=== PATIENT | male | born 1995 | race Caucasian/White ===

== ENCOUNTER → 2017-07-05 20:00 | Outpatient (CLI) | payer BC, SELFPAY | PROVIDERS: Family Provider Family Medicine; PCP Family Medicine; Visit Provider Internal Medicine Critical Care Medicine | DX: G47.10 Hypersomnia, unspecified (principal) | CPT/HCPCS: 95810; 95811 ==

== ENCOUNTER 2021-08-06 12:23 | Outpatient (CLI) | payer BC, SELFPAY ==
[2021-08-06 15:42] LABS: Hematocrit 45.2 % (40-54); Hemoglobin 16.1 g/dL (13.0-16.5); Mean Corp Hgb Conc 35.6 g/dL (32-36); Mean Corpuscular Hgb 33.8 pg (27.0-32.0); Mean Corpuscular Volume 94.8 fL (80-94); Mean Platelet Vol. 10.5 fl (6.2-12.0); Platelet Count 219 K/mm3 (150-450); RBC Distribution Width CV 12.1 % (11.6-14.6); RBC Distribution Width SD 42.2 fl (35.1-43.9); Red Blood Count 4.77 M/mm3 (4.6-6.2); White Blood Count 4.6 K/mm3 (4.4-11.0)
[2021-08-06 15:46] LABS: Erythrocyte Sedimentation Rate 1 mm/hr (0-20)
[2021-08-06 16:13] LABS: ALB/GLOB Ratio 1.5 RATIO (0.9-2.4); AST(SGOT) 24 U/L (15-37); Alanine Aminotransfer ALT/SGPT 63 U/L (16-61); Albumin, Serum 4.1 g/dL (3.2-5.0); Alkaline Phosphatase 90 U/L (45-117); Anion Gap 7 (5-15); BUN 12 mg/dL (7-18); BUN/Creat Ratio 14.9 RATIO (10-20); Calcium,Total 9.3 mg/dL (8.5-10.1); Chloride 105 mmol/L (98-107); EST Glomerular Filtration Rate 126 mL/min (>60); Est Glom Filt Rate - Afr Amer 152 mL/min (>60); Globulin 2.7 g/dL (2.2-4.2); Glucose 83 mg/dL (74-106); Potassium 4.1 mmol/L (3.5-5.1); Protein, Total 6.8 g/dL (6.4-8.2); Sodium Level 138 mmol/L (136-145)
== END 2021-08-06 23:59 | disposition home or self-care (01) ==
LOC: MFPLAB 12:24
PROVIDERS: PCP Family Medicine; Referring Provider Family Medicine; Visit Provider Nurse Practitioner Family
DX: M79.10 Myalgia, unspecified site (principal)
CPT/HCPCS: 36415; 80053; 85027; 85652

== ENCOUNTER 2021-08-14 14:10 | Outpatient (CLI) | payer BC, SELFPAY ==
[2021-08-14 18:10] LABS: D-Dimer Quantitative (DVT/PE) < 0.27 FEU/ug/m (0.27-0.49)
[2021-08-14 18:17] LABS: Magnesium 2.3 mg/dL (1.6-2.6)
[2021-08-17 12:07] LABS: Dilute Prothrombin Time (dPT) 36.1 sec (0.0-47.6); Dilute Russell Viper Venom 33.5 sec (0.0-47.0); PTT-LA 36.8 sec (0.0-51.9); Thrombin Time 18.3 sec (0.0-23.0); dPT Confirm Ratio 1.03 Ratio (0.00-1.34)
[2021-08-17 12:38] LABS: Interpretation Comment: (.)
== END 2021-08-14 23:59 | disposition home or self-care (01) ==
LOC: MFPLAB 14:11
PROVIDERS: Nurse Practitioner Family; PCP Family Medicine; Referring Provider Family Medicine; Visit Provider Nurse Practitioner Family
DX: M79.10 Myalgia, unspecified site (principal)
CPT/HCPCS: 36415; 83735; 85379

== ENCOUNTER → 2022-08-25 | Outpatient (CLI) | payer BC, SELFPAY ==
--- NOTE | 2022-08-25 18:37 | US_ITS ---
INDICATION: MASS-RT SUPERIOR EXAMINATION: Ultrasound US Scrotum (Contents) TECHNIQUE: Realtime ultrasound of the testicles was performed with grayscale, Color Doppler and spectral Doppler analysis. COMPARISON: None. FINDINGS: RIGHT: TESTIS: Right testicle measures 4.1 x 2.6 x 2.1 cm in diameter. Normal in size and echotexture, without focal lesion. COLOR DOPPLER: Normal Doppler flow in the right testicle. EPIDIDYMIS: Normal in size. 2 mm benign epididymal cyst. [Normal color Doppler flow pattern in the epididymis. HYDROCELE: None. VARICOCELE: None. LEFT: TESTIS: Left testicle measures 4.2 x 2.8 x 2.2 cm in diameter.. Normal in size and echotexture, without focal lesion. COLOR DOPPLER: Normal Doppler flow within the left testicle. EPIDIDYMIS: Normal in size. 3 mm benign epididymal cyst. [Normal color Doppler flow pattern in the epididymis. HYDROCELE: Trace. VARICOCELE: None. OTHER: The wall of the right hemiscrotum measures 1.4 mm in thickness. Wall of the left hemiscrotum measures 3 mm in thickness. US/Testicular with Arterial Flow IMPRESSION: Tiny benign cyst within each epididymal head. No findings of testicular torsion or acute epididymitis. No suspicious mass identified within either epididymis or testicle. Electronically Signed: Conner Clinton MD at 1:09 EDT ,
== END | disposition home or self-care (01) ==
PROVIDERS: PCP Family Medicine; Visit Provider Family Medicine
DX: N50.89 Other specified disorders of the male genital organs (principal)
CPT/HCPCS: 76870; 93976